=== PATIENT | male | born 1990 | race Caucasian/White ===

== ENCOUNTER 2022-08-25 19:54 | Emergency (ER) | payer MEDICAID, SELFPAY ==
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
[2022-08-25 20:37] VITALS: BP 153/91; PULSE 71; RESP 16; TEMP 36.6; O2SAT 98; BMI 25.1
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
[2022-08-25] MEDS: HYDROmorphone HCl 2 MG TABLET PO (22:38)
== END 2022-08-25 22:47 | disposition home or self-care (01) ==
PROVIDERS: Emergency Provider Emergency Medicine
DX: S43.101A Unspecified dislocation of right acromioclavicular joint, initial encounter (principal); M25.511 Pain in right shoulder; R07.89 Other chest pain; V29.99XA Rider (driver) (passenger) of other motorcycle injured in unspecified traffic accident, initial encounter; Y93.9 Activity, unspecified; Y92.410 Unspecified street and highway as the place of occurrence of the external cause; Y99.9 Unspecified external cause status
CPT/HCPCS: 71045; 73030; 99284

== ENCOUNTER → 2022-09-06 08:50 | Outpatient (BNVA) | payer MEDICAID, SELFPAY | PROVIDERS: Visit Provider Physician Assistant | DX: S43.101A Unspecified dislocation of right acromioclavicular joint, initial encounter (principal) | CPT/HCPCS: 99202 ==

== ENCOUNTER 2022-10-18 09:38 | Outpatient (AMB) | payer MEDICAID, SELFPAY ==
--- NOTE | 2022-10-18 09:41 | MHC.OFFVIS ---
Intake Vital Signs 10/18/22 09:44 Height 5 ft 11 in Weight 180 lb BMI 25.1 Intake Visit Reasons: OV-f/u Rt ac separation Intake Note: Perico 32 year old right hand dominant male presents today for a follow up of right ac separation, DOI 08/25/22. Patient reports he is doing well, states good ROM. He states PT never contacted him for an appointment but did at home exercises. He is requesting a letter so he is able to return to work. Allergies No Known Allergies [No Known Allergies*] Allergy (Unverified 10/18/22 09:51) HPI OV-f/u Rt ac separation HPI Details 32-year-old right hand dominant male who returns to the office today for a follow-up of right AC separation, 08/25/22. He states he has good ROM of his shoulder and is doing well overall. He continues to perform home exercises and reports that physical therapy never contacted him for an appointment. He is interested at returning to work. 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 He has no pain with palpation. He has full ROM without pain. NVI. Assessment & Plan Assessment & Plan (1) AC separation, type 2: Code(s): S43.109A - Unspecified dislocation of unspecified acromioclavicular joint, initial encounter Plan He will increase activity as tolerated he will continue to work on his home exercises and return to work on 10/21/22 without restrictions. He will contact the office if he has any questions or concerns. Patient Instructions: Scribed for Peng Cerda PA-C, by Rubén Owens medical delivery technician, on 10/18/2022 at 9:30 AM EST. Peng Colmenares PA-C, have personally reviewed and agree with the information entered by the scribe. Coding Level of Care Code Est Pt Level 3 (97856) Diagnoses AC separation, type 2 S43.109F
[2022-10-18 09:44] VITALS: BMI 25.1
== END 2022-10-18 10:04 | disposition home or self-care (01) ==
LOC: HO.HOS 09:38
PROVIDERS: Visit Provider Physician Assistant
DX: S43.109A Unspecified dislocation of unspecified acromioclavicular joint, initial encounter (principal)
CPT/HCPCS: 99213

== ENCOUNTER → 2022-10-18 09:38 | Outpatient (BNVA) | payer MEDICAID, SELFPAY | PROVIDERS: Visit Provider Physician Assistant | DX: S43.101A Unspecified dislocation of right acromioclavicular joint, initial encounter (principal) | CPT/HCPCS: 99213 ==

== ENCOUNTER 2022-11-24 17:08 | Emergency (ER) | payer MEDICAID, SELFPAY ==
[2022-11-24 17:11] VITALS: BP 153/85; PULSE 120; O2SAT 100
[2022-11-24 17:19] VITALS: BP 130/84; PULSE 112; RESP 17; TEMP 37.1; O2SAT 99; BMI 25.3
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
[2022-11-24] MEDS: 0.9 % Sodium Chloride 1,000 ML 999 ML IV (17:35)
[2022-11-24] MEDS: diphenhydrAMINE HCL 50 MG/ML VIAL 25 MG IVPUSH (17:37)
[2022-11-24] MEDS: Famotidine/PF 20 MG/2 ML VIAL IVPUSH (17:37)
[2022-11-24] MEDS: LORazepam 2 MG/ML VIAL 1 MG IVPUSH (17:40)
[2022-11-24 17:42] VITALS: BP 126/76; PULSE 87; RESP 20; O2SAT 98
--- NOTE | 2022-11-24 18:56 | PC.NURSE ---
pt resting quietly, vss, reporting symptoms improvement - no longer stating that his tongue is swollen, calm. pt aware of need for urine sample.
[2022-11-24 18:57] VITALS: BP 105/63; PULSE 69; RESP 20; O2SAT 97
[2022-11-24 20:23] VITALS: BP 101/66; PULSE 66; RESP 16; TEMP 36.7; O2SAT 98
== END 2022-11-24 22:00 | disposition home or self-care (01) ==
PROVIDERS: Emergency Provider Emergency Medicine
DX: F41.9 Anxiety disorder, unspecified (principal); K14.8 Other diseases of tongue
CPT/HCPCS: 96361; 96374; 96375; 99283; 99284; J1200; J2060